=== PATIENT | male | born 1950 | race Caucasian/White ===

== ENCOUNTER → 2021-02-14 | Outpatient (CLI) | payer OTHER ==
--- NOTE | 2021-02-15 08:54 | MR ---
EXAMINATION TYPE: MR cervical spine wo con DATE OF EXAM: 02/14/2021 COMPARISON: HISTORY: Pain, radiculopathy cervical region TECHNIQUE: Multiplanar, multisequence images of the cervical spine were acquired without contrast. C2-C3: No evidence for degenerative disc disease. No disc bulge/herniation or protrusion. No Canal stenosis. Foramina are patent bilaterally. C3-C4: Foraminal encroachment is present due to uncovertebral joint hypertrophy and facet arthropathy more so on the left. Posterior disc bulge causes minimal effacement of anterior thecal sac. No signi ficant spinal stenosis. C4-C5: Posterior extension of broad-based disc bulge effaces the anterior thecal sac. There is some m ild left-sided foraminal encroachment greater than right due to uncovertebral joint hypertrophy and f acet arthropathy. C5-C6: There is some mild spondylosis and stenosis. Bilateral foraminal encroachment present due to u ncovertebral joint hypertrophy and facet arthropathy. Posterior extension endplate disc complex cause s anterior mass effect on the thecal sac. C6-C7: Posterior extension endplate disc complex causes mild anterior mass effect on the thecal sac. Bilateral foraminal encroachment is present due to uncovertebral joint hypertrophy and facet arthropa thy. C7-T1: No evidence for degenerative disc disease. No disc bulge/herniation or protrusion. No Canal stenosis. Foramina are patent bilaterally. Cervical segments are intact. There is normal alignment. Cervical spinal cord is of normal signal. Craniovertebral junction relationships are within normal limits. There is multilevel spondylosis wi th endplate discogenic marrow signal change, loss of disc height and signal at C5-6, C6-7, minimal re trolisthesis grade 1 C5-6. IMPRESSION: Degenerative disc disease, facet arthropathy, multilevel foraminal encroachment as described.
--- NOTE | 2021-02-16 14:24 | MR ---
EXAMINATION TYPE: MR shoulder RT wo con DATE OF EXAM: 02/14/2021 COMPARISON: Plain film from outside institution dated 07/20/2020 HISTORY: Abnormal xray shoulders, tremor of left arm, fell on shoulder TECHNIQUE: Multiplanar, multisequence imaging of the right shoulder is performed without contrast. FINDINGS: There is motion, artifact on the exam Rotator Cuff: The rotator cuff tendon is attenuated anteriorly, supraspinatus tendon shows a partial full-thickness tear at the level of its insertion, coronal image #8 and 7 moderate infraspinatus tend on shows some increased intrasubstance signal, some thickening Acromioclavicular Joint: There is a distal acromial spur present. Arthropathy is present at the acrom ioclavicular joint. There is some mass effect on the musculotendinous junction of supraspinatus. Glenohumeral Joint: There is arthropathy change, some spurring is present in the humeral head. Labrum: The labrum appears grossly intact given limitation of non-arthrogram study. Possible subchond ral geode at the inferior bony labrum Biceps Tendon: There is some fluid signal present along the long head of biceps tendon which shows a normal position in the bicipital groove Bone marrow signal: Pseudocysts are present in the humeral head. Other: There is fluid signal subacromial subdeltoid bursa. IMPRESSION: There is tendinopathy, partial full-thickness tear of the rotator cuff, correlate for impingement. Os teoarthritic changes are present. There is artifact on the exam, likely motion artifact present
--- NOTE | 2021-02-16 15:04 | MR ---
EXAMINATION TYPE: MR shoulder LT wo con DATE OF EXAM: 02/14/2021 COMPARISON: Plain film dated 07/20/2020 from outside institution HISTORY: Abnormal xray shoulders, tremor of left arm, fell on shoulder TECHNIQUE: Multiplanar, multisequence imaging of the left shoulder is performed without contrast. FINDINGS: Rotator Cuff: There is marked attenuation of the rotator cuff anteriorly and at the mid midportion pr oximal to the insertion, some local fluid signal is present. Acromioclavicular Joint: The appearance is wide as noted on plain film. The inferior acromioclavicula r ligament appears somewhat redundant, superior acromioclavicular ligament is somewhat heterogeneous, findings suggest chronic acromioclavicular joint tear with healing, correlate for appropriate histor y. Glenohumeral Joint: Intact Labrum: The labrum appears grossly intact given limitation of non-arthrogram study. Biceps Tendon: The long head of biceps is in normal location within bicipital groove. Bone marrow signal: There are some pseudocysts in the humeral head Other: No, subdeltoid bursa shows fluid signal IMPRESSION: Findings are likely due to the sequela of a chronic acromioclavicular joint tear with healing. There is tendinopathy of the rotator cuff tendon, partial intrasubstance tear is suspected
== END | disposition home or self-care (01) ==
LOC: RADMRIMAIN 07:59
PROVIDERS: ATTEND Family Medicine
DX: M50.123 Cervical disc disorder at C6-C7 level with radiculopathy (principal); M47.22 Other spondylosis with radiculopathy, cervical region
CPT/HCPCS: 72141

== ENCOUNTER → 2022-01-07 | Outpatient (CLI) | payer OTHER ==
--- NOTE | 2022-01-08 03:24 | MR ---
EXAMINATION TYPE: MR brain wo con DATE OF EXAM: 01/07/2022 COMPARISON: None HISTORY: Tremors. Multiplanar multiecho imaging of the brain with no contrast. The diffusion images show no evidence of an acute infarct. Ventricles have fairly normal size. There is no mass effect or midline shift. No sign of intracranial hemorrhage. There is cerebral atrophy. Th ere is scattered numerous white matter high signal foci in both cerebral hemispheres. These measure u p to 1 cm in total number is approximately 50. There is some coalescent signal in the centrum semiova le bilaterally. The brainstem appears normal. Cerebellum is intact. There is white matter involvement also of the corpus callosum. No evidence of sellar mass. No evidenc e of orbital mass. IMPRESSION: Extensive white matter signal changes that could be demyelinating disease and microvascular ischemia. No evidence of cortical infarct.
== END | disposition home or self-care (01) ==
LOC: RADMRIMAIN 10:02
PROVIDERS: ATTEND Family Medicine
DX: R25.1 Tremor, unspecified (principal)
CPT/HCPCS: 70551